=== PATIENT | male | born 1965 | race Caucasian/White ===

== ENCOUNTER 2018-03-29 21:17 | Emergency (ER) | payer OTHER ==
[~2018-03-29] VITALS: Ht 162.6 cm; Wt 70.0 kg
[2018-03-29] MEDS ORDERED: BACITRACIN ZINC OINT 500U/GM, 0.9 GM TP ONE (22:00)
[2018-03-29] MEDS ORDERED: BACITRACIN ZINC OINT 500U/GM, 0.9 GM ONE (22:46)
[2018-03-29 22:58] VITALS: BP 109/74
== END 2018-03-29 23:00 | disposition home or self-care (01) ==
LOC: ED 22:54
DX: L89.892 Pressure ulcer of other site, stage 2 (principal); L97.111 Non-pressure chronic ulcer of right thigh limited to breakdown of skin
CPT/HCPCS: 99283